=== PATIENT | male | born 1960 ===

== ENCOUNTER 2018-01-23 06:44 | Day surgery (SDC) | payer OTHER ==
[~2018-01-23 06:44] MED LIST: ATACAND32 MG PO; HUMALOG100 UNIT/1
[2018-01-23] MEDS ORDERED: PERCOCET 5-3251 EACH PO (11:53)
== END 2018-01-23 14:30 | disposition home or self-care (01) ==
LOC: CIR.AMB 06:44
DX: D35.1 Benign neoplasm of parathyroid gland (principal)

== ENCOUNTER → 2020-07-21 08:00 | Outpatient (CLI) | payer OTHER ==
[~2020-07-21 08:00] MED LIST changes: +PERCOCET 5-3251 EACH PO
== END | disposition home or self-care (01) ==
LOC: PPH VACUNA 08:00
DX: Z23 Encounter for immunization (principal)

== ENCOUNTER → 2021-01-06 | Outpatient (CLI) | payer OTHER | END | disposition home or self-care (01) | LOC: PPH VACUNA 08:30 | PROVIDERS: ATTEND Emergency Medicine Pediatric Emergency Medicine | DX: Z23 Encounter for immunization (principal) ==